=== PATIENT | female | born 1980 | race Caucasian/White ===

== ENCOUNTER 2023-09-19 08:09 | Outpatient (CLI) | payer BC | END 2023-09-19 08:10 | disposition home or self-care (01) | LOC: SCSMRI 08:09 | PROVIDERS: ATTEND Psychiatry & Neurology Neurology | DX: R42 Dizziness and giddiness (principal); R51.9 Headache, unspecified | CPT/HCPCS: 70553 ==

== ENCOUNTER 2023-09-20 08:04 | Outpatient (CLI) | payer BC | END 2023-09-20 08:05 | disposition home or self-care (01) | LOC: ULT 08:04 | PROVIDERS: ATTEND Family Medicine | DX: R31.29 Other microscopic hematuria (principal); N32.89 Other specified disorders of bladder | CPT/HCPCS: 76770 ==